=== PATIENT | male | born 1985 | race Caucasian/White ===

== ENCOUNTER 2019-08-13 14:49 | Inpatient (IN) ==
[2019-08-13 16:30] LABS: BASO# 0.03 X1000 (0.0-0.2); BASO% 0.2 % (0.0-0.8); EOS# 0.14 X1000 (0.0-0.7); EOS% 0.9 % (0.0-10.0); HEMATOCRIT 45.7 % (42.0-52.0); HEMOGLOBIN 15.4 g/dL (14.0-18.0); IMM GRAN# 0.05 X1000 (0.0-0.04); IMM GRAN% 0.3 % (0.0-0.5); LYMPH# 2.95 X1000 (1.2-3.4); LYMPH% 19.3 % (20.5-51.1); MCH 31.8 PG (27-31); MCHC 33.7 g/dL (33-37); MCV 94.2 FL (81-99); MONO% 10.5 % (1.7-9.3); MPV 10.6 FL (7.4-10.4); NEUT# 10.48 X1000 (1.4-6.5); NEUT% 68.8 % (42.2-75.2); PLT 299 X1000 (130-400); RBC 4.85 XMIL (4.7-6.1); RDW 12.5 % (11.5-14.5); WBC 15.25 X1000 (4.8-10.8)
[2019-08-13 16:47] LABS: UR AMPHETAMINES QUAL NONE DETECTED (NONE DETECT); UR BARBITUATES QUAL NONE DETECTED (NONE DETECT); UR BENZODIAZEPIN QUAL NONE DETECTED (NONE DETECT); UR CANNABINOIDS QUAL PRESUMPTIVE POSITIVE (NONE DETECT); UR COCAINE QUAL NONE DETECTED (NONE DETECT); UR METHADONE QUAL NONE DETECTED (NONE DETECT); UR OPIATES QUAL NONE DETECTED (NONE DETECT); UR OXYCODONE QUAL NONE DETECTED (NONE DETECT); UR PCP QUAL NONE DETECTED (NONE DETECT)
[2019-08-13 17:27] LABS: AGAP 14; ALB/GLOB RATIO 1.2; ALBUMIN 4.1 g/dL (3.5-5.0); ALKALINE PHOSPHATASE 49 U/L (32-122); BUN 9 mg/dL (8-22); CHLORIDE 97 mmol/L (98-107); COSMO 277; CREATININE 0.8 mg/dL (0.7-1.2); ESTIMATED GFR > 60; GLUCOSE 74 mg/dL (70-104); GOT 31 U/L (10-34); GPT 49 U/L (10-44); POTASSIUM 4.5 mmol/L (3.5-5.1); SODIUM 140 mmol/L (136-145); TCO2 29 mmol/L (25-35); TOTAL BILIRUBIN 1.22 mg/dL (0.20-1.00); TOTAL PROTEIN 7.4 g/dL (6.3-8.3)
[2019-08-13 17:48] LABS: SED RATE 37 mm/hr (0-15)
[2019-08-14 06:53] LABS: BASO# 0.03 X1000 (0.0-0.2); BASO% 0.2 % (0.0-0.8); EOS% 1.9 % (0.0-10.0); HEMATOCRIT 42.4 % (42.0-52.0); HEMOGLOBIN 14.3 g/dL (14.0-18.0); IMM GRAN# 0.06 X1000 (0.0-0.04); IMM GRAN% 0.4 % (0.0-0.5); LYMPH# 2.26 X1000 (1.2-3.4); LYMPH% 14.5 % (20.5-51.1); MCHC 33.7 g/dL (33-37); MCV 94.9 FL (81-99); MONO% 11.5 % (1.7-9.3); MPV 10.7 FL (7.4-10.4); NEUT# 11.19 X1000 (1.4-6.5); NEUT% 71.5 % (42.2-75.2); PLT 291 X1000 (130-400); RBC 4.47 XMIL (4.7-6.1); RDW 12.5 % (11.5-14.5); WBC 15.64 X1000 (4.8-10.8)
[2019-08-14 07:27] LABS: AGAP 12; BUN 12 mg/dL (8-22); CALCIUM 8.7 mg/dL (8.8-10.2); CHLORIDE 98 mmol/L (98-107); COSMO 274; CREATININE 0.8 mg/dL (0.7-1.2); ESTIMATED GFR > 60; GLUCOSE 106 mg/dL (70-104); SODIUM 137 mmol/L (136-145); TCO2 27 mmol/L (25-35)
[2019-08-15 06:55] LABS: BASO# 0.04 X1000 (0.0-0.2); BASO% 0.3 % (0.0-0.8); EOS# 0.35 X1000 (0.0-0.7); EOS% 2.9 % (0.0-10.0); HEMATOCRIT 40.9 % (42.0-52.0); HEMOGLOBIN 13.9 g/dL (14.0-18.0); IMM GRAN# 0.04 X1000 (0.0-0.04); IMM GRAN% 0.3 % (0.0-0.5); LYMPH# 2.38 X1000 (1.2-3.4); LYMPH% 19.5 % (20.5-51.1); MCH 32.4 PG (27-31); MCV 95.3 FL (81-99); MONO# 1.06 X1000 (0.11-0.59); MONO% 8.7 % (1.7-9.3); MPV 10.4 FL (7.4-10.4); NEUT# 8.36 X1000 (1.4-6.5); NEUT% 68.3 % (42.2-75.2); PLT 317 X1000 (130-400); RBC 4.29 XMIL (4.7-6.1); RDW 12.3 % (11.5-14.5); WBC 12.23 X1000 (4.8-10.8)
[2019-08-15 07:12] LABS: AGAP 12; BUN 11 mg/dL (8-22); CALCIUM 8.9 mg/dL (8.8-10.2); CHLORIDE 101 mmol/L (98-107); COSMO 274; CREATININE 0.8 mg/dL (0.7-1.2); ESTIMATED GFR > 60; GLUCOSE 148 mg/dL (70-104); POTASSIUM 3.8 mmol/L (3.5-5.1); SODIUM 136 mmol/L (136-145); TCO2 23 mmol/L (25-35)
[2019-08-15 11:56] VITALS: BP 112/75
== END 2019-08-15 15:53 | disposition left against medical advice (07) | DRG 558 ==
LOC: ED 14:49 → SUATTDRO 22:03 → 4N 22:03
PROVIDERS: ATTEND Internal Medicine